=== PATIENT | female | born 1980 | race American Indian/Alaskan Native ===

== ENCOUNTER 2018-11-03 22:36 | Emergency (ER) | payer SELFPAY ==
[2018-11-03 22:52] VITALS: BP 152/71; PULSE 88; RESP 16; TEMP 98.9; O2SAT 98
== END 2018-11-04 00:47 | disposition left against medical advice (07) ==
LOC: H.ER 22:36
DX: Z02.89 Encounter for other administrative examinations (principal)

== ENCOUNTER 2018-11-11 13:30 | Emergency (ER) | payer SELFPAY ==
[2018-11-11 13:34] VITALS: O2SAT 100; BMI 23.9
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
[2018-11-11 15:42] VITALS: BP 117/84; PULSE 68; RESP 18; TEMP 99.1
== END 2018-11-11 15:35 | disposition home or self-care (01) ==
LOC: H.ER 13:30
DX: S09.90XA Unspecified injury of head, initial encounter (principal); S69.92XA Unspecified injury of left wrist, hand and finger(s), initial encounter; Y04.0XXA Assault by unarmed brawl or fight, initial encounter; Y92.89 Other specified places as the place of occurrence of the external cause; R45.851 Suicidal ideations; F43.20 Adjustment disorder, unspecified